=== PATIENT | female | born 1955 | race Caucasian/White ===

== ENCOUNTER → 2023-12-29 11:42 | Outpatient (REF) | payer MEDICARE, SELFPAY | LOC: HWWDC 11:42 | PROVIDERS: ATTENDING PHYSICIAN Nurse Practitioner Adult Health; FAMILY PHYSICIAN Family Medicine | DX: Z12.31 Encounter for screening mammogram for malignant neoplasm of breast (principal) | CPT/HCPCS: 77063; 77067 ==

== ENCOUNTER → 2024-12-29 08:02 | Outpatient (REF) | payer MEDICARE, SELFPAY | LOC: HWWDC 08:02 | PROVIDERS: ATTENDING PHYSICIAN Nurse Practitioner Adult Health; FAMILY PHYSICIAN Family Medicine | DX: Z12.31 Encounter for screening mammogram for malignant neoplasm of breast (principal) | CPT/HCPCS: 77063; 77067 ==